=== PATIENT | female | born 2000 | race Caucasian/White ===

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

== ENCOUNTER 2019-02-03 06:35 | Emergency (ER) | payer BC, OTHER ==
[2019-02-03] MEDS ORDERED: Sodium Chloride 0.9% 1000 ML 1,000 ML IV STA (07:07)
[2019-02-03] MEDS ORDERED: Sodium Chloride 0.9% 1000 ML 1,000 ML ONE (07:12)
[2019-02-03 07:27] LABS: BASOPHIL % 0.2 % (0.0-0.4); Basophil (Absolute #) 0.02 (0-0.4); Eosinophil % 2.1 % (0.00-5.0); Eosinophil (Absolute #) 0.19 (0-0.5); Granulocytes % 69.1 % (36.0-66.0); Hematocrit 38.5 % (35-47); Hemoglobin 12.9 gm/dl (12.0-16.0); Lymphocyte (Absolute #) 1.86 (1.0-4.6); Mean Corpuscular Hemoglobin 30.1 pg (26-32); Mean Corpuscular Hgb Concent. 33.5 g/dl (32-36); Mean Platelet Volume 10.8 fl (6-9.5); Monocyte (Absolute #) 0.67 (0.0-1.3); Monocytes % 7.6 % (0.0-12.0); Platelet Count 218 K/mm3 (150-450); Red Blood Count 4.28 M/mm3 (4.1-5.4); Red Cell Distribution Width 13.5 % (11.5-14.0); White Blood Count 8.8 K/mm3 (4.0-10.5)
[2019-02-03 07:32] LABS: ALBUMIN 4.1 g/dL (3.5-5.0); ALKALINE PHOSPHATASE 62 U/L (38-126); ANION GAP 12.7 MEQ/L (5-15); BLOOD UREA NITROGEN 10 mg/dL (7-17); CHLORIDE 108 mmol/L (98-107); Calcium 9.1 mg/dL (8.4-10.2); Carbon Dioxide 24 mmol/L (22-30); Creatinine 1 0.59 mg/dL (0.52-1.04); Glucose 74 mg/dL (74-106); Potassium 3.8 mmol/L (3.5-5.1); SGOT/AST 18 U/L (14-36); SGPT/ALT 12 U/L (0-35); SODIUM 140 mmol/L (137-145); Total Protein 7.4 g/dL (6.3-8.2)
[2019-02-03 08:41] LABS: Appearance CLEAR (CLEAR); Bilirubin NEGATIVE (NEGATIVE); Blood SMALL Ery/ul (0-5); Glucose NEGATIVE (NEGATIVE); Ketones NEGATIVE (NEGATIVE); Leukocyte Esterase NEGATIVE (NEGATIVE); Mucus SLIGHT /HPF (NEGATIVE); Nitrite NEGATIVE (NEGATIVE); Protein,Urine Dip NEGATIVE (Negative); Urobilinogen NEGATIVE mg/dL (0-1); WBC 0-2 /HPF (0-5)
[2019-02-03 08:54] VITALS: BP 90/74
[2019-02-03 08:55] VITALS: PULSE 88
--- NOTE | 2019-02-03 09:00 | ERPHSYRPT ---
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 Staff found her lying on sidewalk Triage Nursing Assessment: patient by wheelchair into ER with correction employee. Weakness noted. appears lethargic Physician History: Pt is a 18 y/o female that was brought to the ED for pre-syncope. Pt was found on her knees outside the assisted facility secondary to feeling weak and dizzy. Pt never LOC, and she denies any jerking movement, loss of urine control or BM control. Pt states, she had a breakfast bar, and did not feel well afterwards. Pt denies F/C/S, no SOB or cough. No chest pain or palpitations. No N/V/D or abdominal pain. Witnessed: other (by co-worker.) Prior Episodes: single episode today Timing/Duration: today Precipitating Factors: unknown Context: other (found of knees) Loss of Consciousness: no loss of consciousness Allergies/Adverse Reactions: No Known Drug Allergies Allergy (Verified 07/24/17 19:13) Hx Tetanus, Diphtheria Vaccination/Date Given: No Hx Influenza Vaccination/Date Given: Yes Hx Pneumococcal Vaccination/Date Given: Yes Immunizations Up to Date: Yes - Past Medical History Pertinent Past Medical History: Yes Neurological History: No Pertinent History ENT History: No Pertinent History Cardiac History: No Pertinent History Respiratory History: No Pertinent History Endocrine Medical History: No Pertinent History Musculoskeletal History: No Pertinent History GI Medical History: No Pertinent History History: Other Psycho-Social History: Depression Female Reproductive Disorders: No Pertinent History Other Medical History: hx of kidney stones - Past Surgical History Past Surgical History: Yes Neuro Surgical History: No Pertinent History Cardiac: No Pertinent History Respiratory: No Pertinent History Gastrointestinal: No Pertinent History Genitourinary: Other Musculoskeletal: No Pertinent History Female Surgical History: No Pertinent History Other Surgical History: cysto with lithotripsy - Social History Smoking Status: Former smoker How long have you smoked: 1 Exposure to second hand smoke: No Drug Use: none Patient Lives Alone: No - Female History Hx Last Menstrual Period: last week Hx Now: No - Review of Systems Constitutional: Weakness, No Fever, No Chills Eyes: No Symptoms Ears, Nose, & Throat: No Symptoms Respiratory: No Cough, No Dyspnea Cardiac: No Chest Pain, No Edema, No Syncope Abdominal/Gastrointestinal: No Abdominal Pain, No Nausea, No Vomiting, No Diarrhea Genitourinary Symptoms: No Dysuria Musculoskeletal: No Back Pain, No Neck Pain Neurological: Dizziness, Lethargy Psychological: No Symptoms Endocrine: No Symptoms Physical Exam - Nursing Vital Signs Nursing Vital Signs: Initial Vital Signs Temperature 97.8 F 02/03/19 06:38 Pulse Rate 81 02/03/19 06:38 Respiratory Rate 20 02/03/19 06:38 Blood Pressure 124/99 02/03/19 06:38 O2 Sat by Pulse Oximetry 100 02/03/19 06:38 Pain Scale Pain Intensity 0 - [place] Coma Scale Best Eye Response (Ezra): (4) open spontaneously Best Verbal Response (Ezra): (5) oriented Best Motor Response ([place]): (6) obeys commands Ezra Total: 15 - Physical Exam General Appearance: lethargy, thin Eye Exam: bilateral eye: normal inspection, PERRL, EOMI Ears, Nose, Throat Exam: normal ENT inspection, pharynx normal, moist mucous membranes Neck Exam: normal inspection, non-tender, supple, full range of motion Respiratory: normal breath sounds, lungs clear, No chest tenderness, No respiratory distress Cardiovascular: regular rate/rhythm, capillary refill <2 sec, No murmur, No pulse deficit Gastrointestinal: soft, No tenderness, No distention, No mass Back Exam: normal inspection, normal range of motion, No CVA tenderness, No vertebral tenderness Extremity Exam: normal inspection, normal range of motion, pelvis stable, No tenderness Mental Status: alert, oriented x 3, cooperative foot tender Exam: normal speech, PERRL, No facial droop Coordination/Gait: normal finger to nose Motor/Sensory: no motor deficit, no sensory deficit, no pronator drift Skin Exam: pale SpO2 Interpretation: normal SpO2: 99 O2 Delivery: Room Air - Course Nursing assessment & vital signs reviewed: No EKG Interpreted by Me: RATE (81bpm), Sinus Rhythm, NORMAL INTERVALS, NORMAL ST-T Ordered Tests: Active Orders 24 hr Category Date Time Status Regular Diet Diet 02/03/19 Lunch Active HEAD WITHOUT CONTRAST [CT] Stat Exams 02/03/19 07:08 Ordered CBC W DIFF Stat Lab 02/03/19 07:07 Completed CMP Stat Lab 02/03/19 07:07 Completed D-DIMER QUANTITATION Stat Lab 02/03/19 07:07 Completed HCG,QUALITATIVE URINE Stat Lab 02/03/19 08:29 Completed UA W/RFX UR CULTURE Stat Lab 02/03/19 08:29 Completed Medication Summary Discontinued Medications Generic Name Dose Route Start Last Admin Trade Name Denise PRN Reason Stop Dose Admin Sodium Chloride 1,000 mls @ 999 mls/hr 02/03/19 07:07 02/03/19 08:52 Sodium Chloride 0.9% 1000 Ml IV 02/03/19 08:07 Infused .Q1H1M STA Infusion Sodium Chloride Confirm 02/03/19 07:12 Sodium Chloride 0.9% 1000 Ml Administered 02/03/19 07:13 Dose 1,000 mls @ ud .ROUTE .STK-MED ONE Lab/Rad Data: Laboratory Result Diagrams 02/03/19 07:07 02/03/19 07:07 Laboratory Results 02/03/19 02/03/19 02/03/19 Range/Units 08:29 08:29 07:07 WBC (4.0-10.5) K/mm3 RBC (4.1-5.4) M/mm3 Hgb (12.0-16.0) gm/dl Hct (35-47) % MCV (78-100) fl MCH (26-32) pg MCHC (32-36) g/dl RDW (11.5-14.0) % Plt Count (150-450) K/mm3 MPV (6-9.5) fl Gran % (36.0-66.0) % Eos # (Auto) (0-0.5) Absolute Lymphs (auto) (1.0-4.6) Absolute Monos (auto) (0.0-1.3) Lymphocytes % (24.0-44.0) % Monocytes % (0.0-12.0) % Eosinophils % (0.00-5.0) % Basophils % (0.0-0.4) % Absolute Granulocytes (1.4-6.9) Basophils # (0-0.4) D-Dimer 467 (215-500) ng/mL Sodium (137-145) mmol/L Potassium (3.5-5.1) mmol/L Chloride (98-107) mmol/L Carbon Dioxide (22-30) mmol/L Anion Gap (5-15) MEQ/L BUN (7-17) mg/dL Creatinine (0.52-1.04) mg/dL Estimated GFR ML/MIN Glucose (74-106) mg/dL Calcium (8.4-10.2) mg/dL Total Bilirubin (0.2-1.3) mg/dL AST (14-36) U/L ALT (0-35) U/L Alkaline Phosphatase (38-126) U/L Serum Total Protein (6.3-8.2) g/dL Albumin (3.5-5.0) g/dL Urine Color YELLOW (YELLOW) Urine Appearance CLEAR (CLEAR) Urine pH 6.0 (5-6) Ur Specific [place] 1.010 (1.005-1.025) Urine Protein NEGATIVE (Negative) Urine Ketones NEGATIVE (NEGATIVE) Urine Blood SMALL (0-5) Chas/ul Urine Nitrite NEGATIVE (NEGATIVE) Urine Bilirubin NEGATIVE (NEGATIVE) Urine Urobilinogen NEGATIVE (0-1) mg/dL Ur Leukocyte Esterase NEGATIVE (NEGATIVE) Urine WBC (Auto) 0-2 (0-5) /HPF Urine RBC (Auto) NONE (0-2) /HPF U Epithel Cells (Auto) NONE (FEW) /HPF Urine Bacteria (Auto) NONE (NEGATIVE) /HPF Urine Mucus (Auto) SLIGHT (NEGATIVE) /HPF Urine Culture Reflexed NO (NO) Urine Glucose NEGATIVE (NEGATIVE) mg/dL Urine HCG, Qual POSITIVE (Negative) 02/03/19 02/03/19 Range/Units 07:07 07:07 WBC 8.8 (4.0-10.5) K/mm3 RBC 4.28 (4.1-5.4) M/mm3 Hgb 12.9 (12.0-16.0) gm/dl Hct 38.5 (35-47) % MCV 90.0 (78-100) fl MCH 30.1 (26-32) pg MCHC 33.5 (32-36) g/dl RDW 13.5 (11.5-14.0) % Plt Count 218 (150-450) K/mm3 MPV 10.8 H (6-9.5) fl Gran % 69.1 H (36.0-66.0) % Eos # (Auto) 0.19 (0-0.5) Absolute Lymphs (auto) 1.86 (1.0-4.6) Absolute Monos (auto) 0.67 (0.0-1.3) Lymphocytes % 21.0 L (24.0-44.0) % Monocytes % 7.6 (0.0-12.0) % Eosinophils % 2.1 (0.00-5.0) % Basophils % 0.2 (0.0-0.4) % Absolute Granulocytes 6.10 (1.4-6.9) Basophils # 0.02 (0-0.4) D-Dimer (215-500) ng/mL Sodium 140 (137-145) mmol/L Potassium 3.8 (3.5-5.1) mmol/L Chloride 108 H (98-107) mmol/L Carbon Dioxide 24 (22-30) mmol/L Anion Gap 12.7 (5-15) MEQ/L BUN 10 (7-17) mg/dL Creatinine 0.59 (0.52-1.04) mg/dL Estimated GFR > 60.0 ML/MIN Glucose 74 (74-106) mg/dL Calcium 9.1 (8.4-10.2) mg/dL Total Bilirubin 0.30 (0.2-1.3) mg/dL AST 18 (14-36) U/L ALT 12 (0-35) U/L Alkaline Phosphatase 62 (38-126) U/L Serum Total Protein 7.4 (6.3-8.2) g/dL Albumin 4.1 (3.5-5.0) g/dL Urine Color (YELLOW) Urine Appearance (CLEAR) Urine pH (5-6) Ur Specific [place] (1.005-1.025) Urine Protein (Negative) Urine Ketones (NEGATIVE) Urine Blood (0-5) Chas/ul Urine Nitrite (NEGATIVE) Urine Bilirubin (NEGATIVE) Urine Urobilinogen (0-1) mg/dL Ur Leukocyte Esterase (NEGATIVE) Urine WBC (Auto) (0-5) /HPF Urine RBC (Auto) (0-2) /HPF U Epithel Cells (Auto) (FEW) /HPF Urine Bacteria (Auto) (NEGATIVE) /HPF Urine Mucus (Auto) (NEGATIVE) /HPF Urine Culture Reflexed (NO) Urine Glucose (NEGATIVE) mg/dL Urine HCG, Qual (Negative) - Progress Progress: improved Progress Note: 02/03/19 09:03 Pt was seen and examined. She was given a liter of IVF and was given breakfast. Her BG was 74, on the low side, post eating her breakfast bar. Hgb is normal, UA is normal. Pt had urine positive for HCG and pt is . She was educated about her condition, and the need to be hydrated, and eat well. Pt is safe to be d/c to home. She was advised to f/u with OB, as she just had her period a couple of weeks ago. Pt should f/u with PCP. Will see patient in: office Counseled pt/family regarding: need for follow-up - Departure Departure Disposition: Home Clinical Impression: Pre-syncope Condition: Stable Critical Care Time: No Referrals: DOCTOR,NO FAMILY [Primary Care Provider] - Additional Instructions: F/U with PCP and Ob. Keep well hydrated, and eat good meals on time.
[2019-02-03 09:01] VITALS: O2SAT 99
== END 2019-02-03 09:17 | disposition home or self-care (01) ==
LOC: ED 06:35
DX: R55 Syncope and collapse (principal)
CPT/HCPCS: 36415; 80053; 81001; 84703; 85025; 85379; 96360; 96374; 99284

== ENCOUNTER 2022-04-25 22:17 | Emergency (ER) | payer BC, OTHER ==
--- NOTE | 2022-04-25 22:30 | ERPHSYRPT ---
- History of Present Illness Time Seen by Provider: 04/25/22 22:30 Source: patient Exam Limitations: no limitations Physician History: This is a 21-year-old white female who is no more than 8 weeks who presents with resolved lower back pain that occurred earlier today. She describes the pain in the back as a cramping pain. She also had wiped and there was some blood when she wiped when she urinated earlier today. She has no lower back cramping, no abdominal or suprapubic cramping and no vaginal bleeding. She has no dysuria. She was concerned because there was an episode of lower back cramping and a single episode of wiping blood after urination. Timing/Duration: today Activites at Onset: none Quality: cramping (Earlier lower back cramping. This is now resolved) Onset Location: other (Lower back) Pain Radiation: none Severity of Pain-Max: mild Severity of Pain-Current: none Prior abdominal problems: none Sexual intercourse history: non-contributory Modifying Factors: Improves With: nothing Associated Symptoms: , other (Had blood when she wiped after urinating) Allergies/Adverse Reactions: No Known Drug Allergies Allergy (Verified 04/25/22 22:50) Home Medications: Buspirone HCl 5 mg [Buspar 5 mg] 5 mg PO BID 04/25/22 [History] Mirtazapine 7.5 mg PO DAILY 04/25/22 [History] Hx Tetanus, Diphtheria Vaccination/Date Given: No Hx Influenza Vaccination/Date Given: Yes Hx Pneumococcal Vaccination/Date Given: Yes Travel Risk - International Travel Have you traveled outside of the country in past 3 weeks: No - Coronavirus Screening Are you exhibiting any of the following symptoms?: No Close contact with a COVID-19 positive Pt in past 14-21 Days: No - Review of Systems Constitutional: No Symptoms Eyes: No Symptoms Ears, Nose, & Throat: No Symptoms Respiratory: No Symptoms Cardiac: No Symptoms Abdominal/Gastrointestinal: No Symptoms Genitourinary Symptoms: , Other (She had blood after she wiped after urinating) Musculoskeletal: Back Pain (Lower back crampiness earlier today. This has since resolved completely) Skin: No Symptoms Neurological: No Symptoms Psychological: No Symptoms Endocrine: No Symptoms Hematologic/Lymphatic: No Symptoms Immunological/Allergic: No Symptoms All Other Systems: Reviewed and Negative - Past Medical History Pertinent Past Medical History: Yes Neurological History: No Pertinent History ENT History: No Pertinent History Cardiac History: No Pertinent History Respiratory History: No Pertinent History Endocrine Medical History: No Pertinent History Musculoskeletal History: No Pertinent History GI Medical History: No Pertinent History History: Other Psycho-Social History: Depression Female Reproductive Disorders: No Pertinent History Other Medical History: hx of kidney stones - Past Surgical History Past Surgical History: Yes Neuro Surgical History: No Pertinent History Cardiac: No Pertinent History Respiratory: No Pertinent History Gastrointestinal: No Pertinent History Genitourinary: Other Musculoskeletal: No Pertinent History Female Surgical History: No Pertinent History Other Surgical History: cysto with lithotripsy - Social History Smoking Status: Former smoker How long have you smoked: 1 Exposure to second hand smoke: No Drug Use: none Patient Lives Alone: No - Nursing Vital Signs Nursing Vital Signs: Initial Vital Signs Temperature 98.1 F 04/25/22 22:38 Pulse Rate 83 04/25/22 22:38 Respiratory Rate 16 04/25/22 22:38 Blood Pressure 103/68 04/25/22 22:38 O2 Sat by Pulse Oximetry 100 04/25/22 22:38 Pain Scale Pain Intensity 0 - Physical Exam General Appearance: no apparent distress, alert, anxiety Eye Exam: PERRL/EOMI, eyes nml inspection Ears, Nose, Throat Exam: normal ENT inspection, moist mucous membranes Neck Exam: normal inspection, non-tender, supple, full range of motion Respiratory Exam: airway intact, No chest tenderness, No respiratory distress Gastrointestinal/Abdomen Exam: soft, normal bowel sounds, No tenderness Pelvic Exam: not done Rectal Exam: not done Back Exam: normal inspection, normal range of motion, No CVA tenderness, No v ertebral tenderness Extremity Exam: normal inspection, normal range of motion, pelvis stable Neurologic Exam: alert, oriented x 3, cooperative, pattern changer and repairer II-XII nml as tested, normal mood/affect, nml cerebellar function, nml station & gait, sensation nml Skin Exam: normal color, warm, dry Lymphatic Exam: No adenopathy SpO2 Interpretation: normal O2 Delivery: Room Air - Course Nursing assessment & vital signs reviewed: Yes Ordered Tests: Active Orders 24 hr Category Date Time Status CBC W DIFF Stat Lab 04/25/22 22:53 Completed CMP Stat Lab 04/25/22 22:53 Completed HCG, Quantitative (Inhouse) Stat Lab 04/25/22 22:53 Completed HCG,QUALITATIVE URINE Stat Lab 04/25/22 22:53 Completed UA W/RFX CULTURE Stat Lab 04/25/22 22:53 Completed Lab/Rad Data: Laboratory Result Diagrams 04/25/22 22:53 04/25/22 22:53 Laboratory Results 04/25/22 04/25/22 04/25/22 Range/Units 22:53 22:53 22:53 WBC 12.3 H (4.0-10.5) x10^3/uL RBC 4.18 (4.1-5.4) x10^6/uL Hgb 12.4 (12.0-16.0) g/dL Hct 37.6 (35-47) % MCV 90.0 (78-100) fL MCH 29.7 (26-32) pg MCHC 33.0 (32-36) g/dL RDW 12.6 (11.5-14.0) % Plt Count 245 (150-450) x10^3/uL MPV 10.2 (7.5-11.0) fL Gran % 70.4 H (36.0-66.0) % Immature Gran % (Auto) 0.2 (0.00-0.4) % Nucleat RBC Rel Count 0.0 (0.00-0.1) % Eos # (Auto) 0.39 (0-0.5) x10^3/uL Immature Gran # (Auto) 0.03 (0.00-0.03) x10^3u/L Absolute Lymphs (auto) 2.33 (1.0-4.6) x10^3/uL Absolute Monos (auto) 0.84 (0.0-1.3) x10^3/uL Absolute Nucleated RBC 0.00 (0.00-0.01) x10^3u/L Lymphocytes % 19.0 L (24.0-44.0) % Monocytes % 6.8 (0.0-12.0) % Eosinophils % 3.2 (0.00-5.0) % Basophils % 0.4 (0.0-0.4) % Absolute Granulocytes 8.63 H (1.4-6.9) x10^3/uL Basophils # 0.05 (0-0.4) x10^3/uL Sodium 135 L (137-145) mmol/L Potassium 3.7 (3.5-5.1) mmol/L Chloride 102 (98-107) mmol/L Carbon Dioxide 27 (22-30) mmol/L Anion Gap 9.9 (5-15) MEQ/L BUN 6 L (7-17) mg/dL Creatinine 0.46 L (0.52-1.04) mg/dL Estimated GFR > 60.0 ML/MIN Glucose 88 (74-106) mg/dL Calcium 9.2 (8.4-10.2) mg/dL Total Bilirubin 0.20 (0.2-1.3) mg/dL AST 20 (14-36) U/L ALT 17 (0-35) U/L Alkaline Phosphatase 76 (38-126) U/L Serum Total Protein 6.9 (6.3-8.2) g/dL Albumin 4.2 (3.5-5.0) g/dL Beta HCG, Quant 35780 mIU/ml Urinalys Dipstick Clnc MAIN LAB Urine Color YELLOW (YELLOW) Urine Appearance CLEAR (CLEAR) Urine pH 7.5 (5-6) Ur Specific [place] 1.015 (1.005-1.025) POC Urine Protein Conf NEGATIVE (Negative) Urine Ketones NEGATIVE (NEGATIVE) Urine Nitrite NEGATIVE (NEGATIVE) Urine Bilirubin NEGATIVE (NEGATIVE) Urine Urobilinogen 0.2 (0-1) mg/dL Urine Leukocytes NEGATIVE (NEGATIVE) Urine WBC (Auto) NONE SEEN (0-5) /HPF Urine RBC (Auto) NONE (0-2) /HPF U Epithel Cells (Auto) RARE (FEW) /HPF Urine Bacteria (Auto) RARE (NEGATIVE) /HPF Urine RBC NEGATIVE (0-5) Chas/ul Amorphous Crystals FEW A (NEGATIVE) /HPF Ur Culture Indicated? NO Urine Glucose NEGATIVE (NEGATIVE) mg/dL Urine HCG, Qual (Negative) 04/25/22 Range/Units 22:53 WBC (4.0-10.5) x10^3/uL RBC (4.1-5.4) x10^6/uL Hgb (12.0-16.0) g/dL Hct (35-47) % MCV (78-100) fL MCH (26-32) pg MCHC (32-36) g/dL RDW (11.5-14.0) % Plt Count (150-450) x10^3/uL MPV (7.5-11.0) fL Gran % (36.0-66.0) % Immature Gran % (Auto) (0.00-0.4) % Nucleat RBC Rel Count (0.00-0.1) % Eos # (Auto) (0-0.5) x10^3/uL Immature Gran # (Auto) (0.00-0.03) x10^3u/L Absolute Lymphs (auto) (1.0-4.6) x10^3/uL Absolute Monos (auto) (0.0-1.3) x10^3/uL Absolute Nucleated RBC (0.00-0.01) x10^3u/L Lymphocytes % (24.0-44.0) % Monocytes % (0.0-12.0) % Eosinophils % (0.00-5.0) % Basophils % (0.0-0.4) % Absolute Granulocytes (1.4-6.9) x10^3/uL Basophils # (0-0.4) x10^3/uL Sodium (137-145) mmol/L Potassium (3.5-5.1) mmol/L Chloride (98-107) mmol/L Carbon Dioxide (22-30) mmol/L Anion Gap (5-15) MEQ/L BUN (7-17) mg/dL Creatinine (0.52-1.04) mg/dL Estimated GFR ML/MIN Glucose (74-106) mg/dL Calcium (8.4-10.2) mg/dL Total Bilirubin (0.2-1.3) mg/dL AST (14-36) U/L ALT (0-35) U/L Alkaline Phosphatase (38-126) U/L Serum Total Protein (6.3-8.2) g/dL Albumin (3.5-5.0) g/dL Beta HCG, Quant mIU/ml Urinalys Dipstick Clnc Urine Color (YELLOW) Urine Appearance (CLEAR) Urine pH (5-6) Ur Specific [place] (1.005-1.025) POC Urine Protein Conf (Negative) Urine Ketones (NEGATIVE) Urine Nitrite (NEGATIVE) Urine Bilirubin (NEGATIVE) Urine Urobilinogen (0-1) mg/dL Urine Leukocytes (NEGATIVE) Urine WBC (Auto) (0-5) /HPF Urine RBC (Auto) (0-2) /HPF U Epithel Cells (Auto) (FEW) /HPF Urine Bacteria (Auto) (NEGATIVE) /HPF Urine RBC (0-5) Chas/ul Amorphous Crystals (NEGATIVE) /HPF Ur Culture Indicated? Urine Glucose (NEGATIVE) mg/dL Urine HCG, Qual POSITIVE (Negative) - Progress Progress: improved Air Movement: good Counseled pt/family regarding: lab results, diagnosis, need for follow-up - Departure Departure Disposition: Home Clinical Impression: Vaginal bleeding affecting early Condition: Stable Critical Care Time: No Referrals: DOCTOR,NO FAMILY [Primary Care Provider] - Follow up/PCP as directed Additional Instructions: Continue your medication as prescribed. 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
[2022-04-25 22:50] VITALS: BP 103/68
[2022-04-25 22:56] LABS: Absolute Neutrophil Ct (ANC) 8.63 x10^3/uL (1.4-6.9); Basophil (Absolute #) 0.05 x10^3/uL (0-0.4); Eosinophil % 3.2 % (0.00-5.0); Eosinophil (Absolute #) 0.39 x10^3/uL (0-0.5); Hematocrit 37.6 % (35-47); Hemoglobin 12.4 g/dL (12.0-16.0); Lymphocyte (Absolute #) 2.33 x10^3/uL (1.0-4.6); Mean Corpuscular Hemoglobin 29.7 pg (26-32); Mean Platelet Volume 10.2 fL (7.5-11.0); Monocyte (Absolute #) 0.84 x10^3/uL (0.0-1.3); Monocytes % 6.8 % (0.0-12.0); Neutrophil % 70.4 % (36.0-66.0); Platelet Count 245 x10^3/uL (150-450); Red Blood Count 4.18 x10^6/uL (4.1-5.4); Red Cell Distribution Width 12.6 % (11.5-14.0); White Blood Count 12.3 x10^3/uL (4.0-10.5)
[2022-04-25 23:01] LABS: Appearance CLEAR (CLEAR); Bilirubin NEGATIVE (NEGATIVE); Dipstick done @ ? MAIN LAB; Glucose NEGATIVE (NEGATIVE); Ketones NEGATIVE (NEGATIVE); Nitrite NEGATIVE (NEGATIVE); Ph 7.5 (5-6); Protein,Urine Dip NEGATIVE (Negative); RBC NEGATIVE Ery/ul (0-5); Specific Gravity 1.015 (1.005-1.025); Urobilinogen 0.2 mg/dL (0-1)
[2022-04-25 23:04] LABS: Amourphous Crystal FEW /HPF (NEGATIVE); Bacteria RARE /HPF (NEGATIVE); Epithelial Cells RARE /HPF (FEW); Urine Cultured Indicated? NO; WBC NONE SEEN /HPF (0-5)
[2022-04-25 23:29] LABS: ALBUMIN 4.2 g/dL (3.5-5.0); ALKALINE PHOSPHATASE 76 U/L (38-126); ANION GAP 9.9 MEQ/L (5-15); BLOOD UREA NITROGEN 6 mg/dL (7-17); CHLORIDE 102 mmol/L (98-107); Calcium 9.2 mg/dL (8.4-10.2); Carbon Dioxide 27 mmol/L (22-30); Creatinine 1 0.46 mg/dL (0.52-1.04); EST GLOMERULAR FILTRATION RATE > 60.0 ML/MIN; Glucose 88 mg/dL (74-106); Potassium 3.7 mmol/L (3.5-5.1); SGOT/AST 20 U/L (14-36); SGPT/ALT 17 U/L (0-35); SODIUM 135 mmol/L (137-145); Total Protein 6.9 g/dL (6.3-8.2)
[2022-04-25 23:53] LABS: HCG, Quantitative (Inhouse) 84875 mIU/ml
[2022-04-26 00:10] VITALS: PULSE 102; O2SAT 98
== END 2022-04-26 00:10 | disposition home or self-care (01) ==
LOC: ED 22:17
DX: O20.9 Hemorrhage in early pregnancy, unspecified (principal); Z3A.08 8 weeks gestation of pregnancy; M54.50 Low back pain, unspecified; Z79.899 Other long term (current) drug therapy
CPT/HCPCS: 36415; 80053; 81015; 81025; 84702; 85025; 99282

== ENCOUNTER 2022-05-13 02:13 | Emergency (ER) | payer BC, OTHER ==
[2022-05-13 04:20] LABS: Erythrocyte Sedimentation Rate 1 mm/hr (0-20)
[2022-05-13 04:23] LABS: Absolute Neutrophil Ct (ANC) 6.99 x10^3/uL (1.4-6.9); Basophil (Absolute #) 0.04 x10^3/uL (0-0.4); Eosinophil % 2.2 % (0.00-5.0); Eosinophil (Absolute #) 0.22 x10^3/uL (0-0.5); Hematocrit 32.8 % (35-47); Hemoglobin 11.2 g/dL (12.0-16.0); Lymphocyte (Absolute #) 2.19 x10^3/uL (1.0-4.6); Lymphocytes % 21.5 % (24.0-44.0); Mean Cell Volume 87.5 fL (78-100); Mean Corpuscular Hemoglobin 29.9 pg (26-32); Mean Corpuscular Hgb Concent. 34.1 g/dL (32-36); Mean Platelet Volume 10.5 fL (7.5-11.0); Monocyte (Absolute #) 0.72 x10^3/uL (0.0-1.3); Monocytes % 7.1 % (0.0-12.0); Neutrophil % 68.4 % (36.0-66.0); Platelet Count 239 x10^3/uL (150-450); Red Blood Count 3.75 x10^6/uL (4.1-5.4); Red Cell Distribution Width 12.9 % (11.5-14.0); White Blood Count 10.2 x10^3/uL (4.0-10.5)
--- NOTE | 2022-05-13 04:33 | ERPHSYRPT ---
- History of Present Illness Time Seen by Provider: 05/13/22 04:25 Source: patient, family Exam Limitations: no limitations Patient Subjective Stated Complaint: pt states "I have been loosing my voice for the past month and a half. They thought it was my thyroid. I had a ultrasounds of it and it was fine. I have an appointment for my throat on Saturday. It is getting harder for me to talk and swallow." Triage Nursing Assessment: pt ambulated into the er; pt is axo x4; c/o sorethroat; pt states 8/10 pain to throat; c/o difficulty swallowing; pt is drinking soda; pt has raspy voice; mucus membrane are pink and moist; multiple tooth caries to left lower molars; tosils visble, pink, no swelling present; no swelling present to lymph nodes; skin PDW; vitals wnl Physician History: Pt reports 6 week hx of hoaseness and pain with swallowing. She can still swallow liquids in ER. SHe is 10 weeks with no current preg symptoms - no bleeding, vomiting, cramping, trauma, discharge or other concerns. She has already been swabbed for strep and other resp and found negative. She is being worked up already and to see ENT. No stridor, nontender anterior neck without crep. no major enlargement of thyroid on exam - has had several negative tests so far for thyrotoxicosis. Chest clear without stridor or wheezes. pharynx normal without swelling noted. abd nontender. No rashes. We discussed risk and benefit of CT to look for immediate problem like compression of trachea, and she does not wish the rad risk. We discussed alternatives such as MRI - not available here on weekend, and she wishes to wait for this and declines transfer for further w/u meantime and has the capacity to make these choices. Timing/Duration: gradual onset, persistent, weeks Severity: moderate ENT Location: throat Prearrival Treatment: over the counter meds Modifying Factors: Improves With: nothing Associated Symptoms: sore throat, voice change, other (swallowing ok in ER but states painful) Allergies/Adverse Reactions: No Known Drug Allergies Allergy (Verified 05/13/22 02:25) Home Medications: Buspirone HCl 5 mg [Buspar 5 mg] 5 mg PO BID 04/25/22 [History] Mirtazapine 7.5 mg PO DAILY 04/25/22 [History] Hx Tetanus, Diphtheria Vaccination/Date Given: No Hx Influenza Vaccination/Date Given: No Hx Pneumococcal Vaccination/Date Given: No Travel Risk - International Travel Have you traveled outside of the country in past 3 weeks: No - Coronavirus Screening Are you exhibiting any of the following symptoms?: No Close contact with a COVID-19 positive Pt in past 14-21 Days: No - Vaccine Status Have you recieved a Covid-19 vaccination: No - Review of Systems Constitutional: No Fever, No Chills Eyes: No Symptoms Ears, Nose, & Throat: Painful Swallowing Respiratory: No Cough, No Dyspnea Cardiac: No Chest Pain, No Edema, No Syncope Abdominal/Gastrointestinal: No Abdominal Pain, No Nausea, No Vomiting, No Diarrhea Genitourinary Symptoms: No Dysuria Musculoskeletal: No Back Pain, No Neck Pain Skin: No Rash Neurological: No Dizziness, No Focal Weakness, No Sensory Changes Psychological: No Symptoms Endocrine: No Symptoms Hematologic/Lymphatic: No Symptoms Immunological/Allergic: No Symptoms All Other Systems: Reviewed and Negative - Past Medical History Pertinent Past Medical History: Yes Neurological History: No Pertinent History ENT History: No Pertinent History Cardiac History: No Pertinent History Respiratory History: No Pertinent History Endocrine Medical History: No Pertinent History Musculoskeletal History: No Pertinent History GI Medical History: No Pertinent History History: Other Psycho-Social History: Anxiety, Depression Female Reproductive Disorders: No Pertinent History Other Medical History: hx of kidney stones, PTSD - Past Surgical History Past Surgical History: Yes Neuro Surgical History: No Pertinent History Cardiac: No Pertinent History Respiratory: No Pertinent History Gastrointestinal: No Pertinent History Genitourinary: Other Musculoskeletal: No Pertinent History Female Surgical History: No Pertinent History Other Surgical History: cysto with lithotripsy - Social History Smoking Status: Former smoker How long have you smoked: 1 Exposure to second hand smoke: No Drug Use: none Patient Lives Alone: No - Female History Hx Now: Yes Expected Date of Delivery: 11/17/22 Gestational Age: 10 weeks - Nursing Vital Signs Nursing Vital Signs: Initial Vital Signs Temperature 98.6 F 05/13/22 02:17 Pulse Rate 95 H 05/13/22 02:17 Respiratory Rate 16 05/13/22 02:17 Blood Pressure 133/88 05/13/22 02:17 O2 Sat by Pulse Oximetry 99 05/13/22 02:17 Pain Scale Pain Intensity 8 - Physical Exam General Appearance: no apparent distress, alert Eye Exam: bilateral eye: normal inspection, PERRL, EOMI Ear Exam: bilateral ear: auricle normal, canal normal, TM normal Nasal Exam: normal inspection Throat Exam: pharynx normal, moist mucus membranes, No tonsillar exudate Neck Exam: normal inspection, non-tender, supple, full range of motion, trachea midline Cardiovascular/Respiratory Exam: normal breath sounds, regular rate/rhythm, heart sounds normal Abdominal Exam: non-tender, soft Neurologic Exam: alert, oriented x 3, sensation nml, No motor deficits Skin Exam: normal color, warm, dry SpO2 Interpretation: normal SpO2: 99 O2 Delivery: Room Air - Course Nursing assessment & vital signs reviewed: Yes Ordered Tests: Active Orders 24 hr Category Date Time Status CBC W DIFF Stat Lab 05/13/22 04:19 Completed Erythrocyte Sedimentation Rate Stat Lab 05/13/22 04:19 Completed [place] Screen Stat Lab 05/13/22 04:19 Completed T4 (Thyroxine) Stat Lab 05/13/22 04:19 Completed Lab/Rad Data: Laboratory Result Diagrams 05/13/22 04:19 Laboratory Results 05/13/22 05/13/22 05/13/22 Range/Units 04:19 04:19 04:19 WBC 10.2 (4.0-10.5) x10^3/uL RBC 3.75 L (4.1-5.4) x10^6/uL Hgb 11.2 L (12.0-16.0) g/dL Hct 32.8 L (35-47) % MCV 87.5 (78-100) fL MCH 29.9 (26-32) pg MCHC 34.1 (32-36) g/dL RDW 12.9 (11.5-14.0) % Plt Count 239 (150-450) x10^3/uL MPV 10.5 (7.5-11.0) fL Gran % 68.4 H (36.0-66.0) % Immature Gran % (Auto) 0.4 (0.00-0.4) % Nucleat RBC Rel Count 0.0 (0.00-0.1) % Eos # (Auto) 0.22 (0-0.5) x10^3/uL Immature Gran # (Auto) 0.04 H (0.00-0.03) x10^3u/L Absolute Lymphs (auto) 2.19 (1.0-4.6) x10^3/uL Absolute Monos (auto) 0.72 (0.0-1.3) x10^3/uL Absolute Nucleated RBC 0.00 (0.00-0.01) x10^3u/L Lymphocytes % 21.5 L (24.0-44.0) % Monocytes % 7.1 (0.0-12.0) % Eosinophils % 2.2 (0.00-5.0) % Basophils % 0.4 (0.0-0.4) % Absolute Granulocytes 6.99 H (1.4-6.9) x10^3/uL Basophils # 0.04 (0-0.4) x10^3/uL ESR 1 (0-20) mm/hr Thyroxine (T4) 13.2 H (5.53-10.96) ug/dL Monoscreen NEGATIVE (Negative) - Progress Progress: improved, re-examined Progress Note: 05/13/22 05:01 discussed result with pt including elevated T4. 13 with normal here at about 11. Pt wishes f/u as outpt with PMD and endo tomorrow rather that further w/u / beginning Tx in er at this time, and has the capacity to make that choice. She understands that there could be a progression of her condition meantime or an unrelated condition undtected could be progressing.. 05/13/22 05:07 Counseled pt/family regarding: lab results, diagnosis, need for follow-up - Departure Departure Disposition: Home Clinical Impression: Hyperthyroidism Condition: Good Critical Care Time: No Referrals: Provider,Unknown [Primary Care Provider] - Follow up/PCP as directed Instructions: Sore Throat, Adult (DC), Hyperthyroidism (Overactive Thyroid) and Additional Instructions: We did find your T4 from your thyroid to be elevated and this may indicate hyperthyroidism. follow-up with your for further work-up and treatment as planned tomorrow. . return meantime if unable to swallow, trouble breathing or any other concerns.
[2022-05-13 05:02] VITALS: BP 128/74; PULSE 87
[2022-05-13 05:07] VITALS: O2SAT 99
== END 2022-05-13 05:16 | disposition home or self-care (01) ==
LOC: ED 02:13
DX: O99.281 Endocrine, nutritional and metabolic diseases complicating pregnancy, first trimester (principal); E05.90 Thyrotoxicosis, unspecified without thyrotoxic crisis or storm; Z3A.10 10 weeks gestation of pregnancy; J02.9 Acute pharyngitis, unspecified; R49.0 Dysphonia; Z79.899 Other long term (current) drug therapy; Z28.310 Unvaccinated for COVID-19
CPT/HCPCS: 36415; 84436; 85025; 85652; 86308; 99282

== ENCOUNTER 2025-02-17 13:52 | Emergency (ER) | payer OTHER ==
--- NOTE | 2025-02-17 15:08 | ERPHSYRPT ---
- History of Present Illness Time Seen by Provider: 02/17/25 14:57 Historian: patient Exam Limitations: no limitations Physician History: 24-year-old female presents emergency room with chest pain shortness of breath patient was seen at outpatient facility sent to the ER for an abnormal EKG reading patient is been feeling sick for the past 2 to 3 days she had a delivery of her third child back in September and she had a bilateral tubal ligation done in November denies any nausea vomiting diarrhea denies any back pain denies any other symptoms patient is now in ED for further eval Timing/Duration: day(s) (3) Activities at Onset: activity Quality: aching Location: substernal Chest Pain Radiation: no radiation Severity of Pain-Max: mild Severity of Pain-Current: mild Associated Symptoms: shortness of breath, No abdominal pain, No cough, No chills Aspirin Treatment Today: no aspirin today Allergies/Adverse Reactions: No Known Drug Allergies Allergy (Verified 02/17/25 15:04) Hx Tetanus, Diphtheria Vaccination/Date Given: No Hx Influenza Vaccination/Date Given: No Hx Pneumococcal Vaccination/Date Given: No - Review of Systems Constitutional: No Fever, No Chills Eyes: No Symptoms Ears, Nose, & Throat: No Symptoms Respiratory: Dyspnea, No Cough Cardiac: Chest Pain, No Edema, No Syncope Abdominal/Gastrointestinal: No Abdominal Pain, No Nausea, No Vomiting, No Diarrhea Genitourinary Symptoms: No Dysuria Musculoskeletal: No Back Pain, No Neck Pain Skin: No Rash Neurological: No Dizziness, No Focal Weakness, No Sensory Changes Psychological: No Symptoms Endocrine: No Symptoms All Other Systems: Reviewed and Negative - Past Medical History Pertinent Past Medical History: Yes Neurological History: No Pertinent History ENT History: No Pertinent History Cardiac History: No Pertinent History Respiratory History: No Pertinent History Endocrine Medical History: No Pertinent History Musculoskeletal History: No Pertinent History GI Medical History: No Pertinent History History: Other Psycho-Social History: Anxiety, Depression Female Reproductive Disorders: No Pertinent History Other Medical History: hx of kidney stones, PTSD - Past Surgical History Past Surgical History: Yes Neuro Surgical History: No Pertinent History Cardiac: No Pertinent History Respiratory: No Pertinent History Gastrointestinal: No Pertinent History Genitourinary: Other Musculoskeletal: No Pertinent History Female Surgical History: No Pertinent History Other Surgical History: cysto with lithotripsy - Female History Hx Now: No - Social History Smoking Status: Former smoker Drug Use: none - Nursing Vital Signs Nursing Vital Signs: Initial Vital Signs Temperature 97 F 02/17/25 13:53 Pulse Rate 98 H 02/17/25 13:53 Respiratory Rate 20 02/17/25 13:53 Blood Pressure 129/96 02/17/25 13:53 O2 Sat by Pulse Oximetry 100 02/17/25 13:53 Pain Scale Pain Intensity 2 - Physical Exam General Appearance: no apparent distress, alert Eye Exam: PERRL/EOMI, eyes nml inspection Ears, Nose, Throat Exam: normal ENT inspection, moist mucous membranes Neck Exam: normal inspection, non-tender, supple, full range of motion Respiratory Exam: normal breath sounds, lungs clear, No respiratory distress Cardiovascular Exam: regular rate/rhythm, normal heart sounds Gastrointestinal/Abdomen Exam: soft, No tenderness, No mass Back Exam: normal inspection, No CVA tenderness, No vertebral tenderness Extremity Exam: normal inspection, normal range of motion Neurologic Exam: alert, oriented x 3, cooperative, normal mood/affect, sensation nml, No motor deficits Skin Exam: normal color, warm, dry - Course Nursing assessment & vital signs reviewed: Yes EKG Interpreted by Me: RATE (92), Sinus Rhythm, Non-specific ST Changes, Other (no STEMI) Ordered Tests: Active Orders 24 hr Category Date Time Status Torch [place] STAT Care 02/17/25 14:59 Active EKG-ER Only STAT Care 02/17/25 14:58 Active IV Insertion STAT Care 02/17/25 14:58 Completed Pulse Oximetry (ED) STAT Care 02/17/25 14:58 Completed CHEST 1 VIEW (PORTABLE) Stat Exams 02/17/25 14:59 Completed CBC W DIFF Stat Lab 02/17/25 15:00 Completed CK-Creatinine Phosphokinase Stat Lab 02/17/25 15:00 Completed CMP Stat Lab 02/17/25 15:00 Completed D-DIMER QUANTITATIVE Stat Lab 02/17/25 15:00 Completed NT PRO BNPII Stat Lab 02/17/25 15:00 Completed TROPONIN Q3H Lab 02/17/25 15:00 Completed TROPONIN Q3H Lab 02/17/25 17:00 Completed TSH [TSH, 3RD Generation] Stat Lab 02/17/25 17:00 Received [place] 3-7 Day Holter ONCE RT 02/17/25 17:01 Completed Medication Summary Discontinued Medications Generic Name Dose Route Start Last Admin Trade Name Freq PRN Reason Stop Dose Admin Meclizine HCl 25 mg 02/17/25 16:41 02/17/25 16:46 Meclizine Hcl 25 Mg Tablet PO 02/17/25 16:42 25 mg STAT ONE Administration Ondansetron HCl 4 mg 02/17/25 16:41 02/17/25 16:47 Ondansetron Hcl 4 Mg/2 Ml Vial IV 02/17/25 16:42 4 mg STAT ONE Administration Lab/Rad Data: Laboratory Result Diagrams 02/17/25 15:00 02/17/25 15:00 Laboratory Results 02/17/25 02/17/25 02/17/25 Range/Units 17:00 15:12 15:00 WBC (3.98-10.04) x10^3/uL RBC (3.93-5.22) x10^6/uL Hgb (11.2-15.7) g/dL Hct (34.1-44.9) % MCV (79.4-94.8) fL MCH (25.6-32.2) pg MCHC (32.2-35.5) g/dL RDW (11.7-14.4) % Plt Count (182-369) x10^3/uL MPV (9.4-12.3) fL Gran % (34.0-71.1) % Immature Gran % (Auto) (0.001-0.429) % Nucleat RBC Rel Count (0.00-0.2) % Eos # (Auto) (0.04-0.36) x10^3/uL Immature Gran # (Auto) (0.001-0.031) x10^3u/L Absolute Lymphs (auto) (1.18-3.74) x10^3/uL Absolute Monos (auto) (0.24-0.86) x10^3/uL Absolute Nucleated RBC (0.00-0.012) x10^3u/L Lymphocytes % (19.3-51.7) % Monocytes % (4.7-12.5) % Eosinophils % (0.7-5.8) % Basophils % (0.1-1.2) % Absolute Granulocytes (1.56-6.13) x10^3/uL Basophils # (0.01-0.08) x10^3/uL D-Dimer (0.0-0.50) mg/L Sodium (135-145) mmol/L Potassium (3.5-5.1) mmol/L Chloride (98-107) mmol/L Carbon Dioxide (22-30) mmol/L Anion Gap (5-15) MEQ/L BUN (7-17) mg/dL Creatinine (0.52-1.04) mg/dL Estimated GFR ML/MIN Glucose (74-106) mg/dL Calcium (8.4-10.2) mg/dL Total Bilirubin (0.2-1.3) mg/dL AST (14-36) U/L ALT (0-35) U/L Alkaline Phosphatase (38-126) U/L Creatine Kinase (30-135) U/L Troponin I < 0.012 < 0.012 (0.000-0.033) ng/mL NT-Pro-B Natriuret Pep 251 (<300) pg/mL Serum Total Protein (6.3-8.2) g/dL Albumin (3.5-5.0) g/dL Influenza Type A Ag NEGATIVE (NEGATIVE) Influenza Type B Ag NEGATIVE (NEGATIVE) RSV (PCR) NEGATIVE (NEGATIVE) SARS-CoV-2 (PCR) NEGATIVE (NEGATIVE) 02/17/25 02/17/25 02/17/25 Range/Units 15:00 15:00 15:00 WBC 8.0 (3.98-10.04) x10^3/uL RBC 4.96 (3.93-5.22) x10^6/uL Hgb 14.6 (11.2-15.7) g/dL Hct 43.7 (34.1-44.9) % MCV 88.1 (79.4-94.8) fL MCH 29.4 (25.6-32.2) pg MCHC 33.4 (32.2-35.5) g/dL RDW 12.6 (11.7-14.4) % Plt Count 243 (182-369) x10^3/uL MPV 11.1 (9.4-12.3) fL Gran % 67.6 (34.0-71.1) % Immature Gran % (Auto) 0.1 (0.001-0.429) % Nucleat RBC Rel Count 0.0 (0.00-0.2) % Eos # (Auto) 0.05 (0.04-0.36) x10^3/uL Immature Gran # (Auto) 0.01 (0.001-0.031) x10^3u/L Absolute Lymphs (auto) 1.85 (1.18-3.74) x10^3/uL Absolute Monos (auto) 0.64 (0.24-0.86) x10^3/uL Absolute Nucleated RBC 0.00 (0.00-0.012) x10^3u/L Lymphocytes % 23.1 (19.3-51.7) % Monocytes % 8.0 (4.7-12.5) % Eosinophils % 0.6 L (0.7-5.8) % Basophils % 0.6 (0.1-1.2) % Absolute Granulocytes 5.41 (1.56-6.13) x10^3/uL Basophils # 0.05 (0.01-0.08) x10^3/uL D-Dimer < 0.19 (0.0-0.50) mg/L Sodium 140 (135-145) mmol/L Potassium 3.7 (3.5-5.1) mmol/L Chloride 101 (98-107) mmol/L Carbon Dioxide 26 (22-30) mmol/L Anion Gap 16.9 H (5-15) MEQ/L BUN 8 (7-17) mg/dL Creatinine 0.61 (0.52-1.04) mg/dL Estimated GFR 126.4 ML/MIN Glucose 101 (74-106) mg/dL Calcium 10.2 (8.4-10.2) mg/dL Total Bilirubin 0.80 (0.2-1.3) mg/dL AST 27 (14-36) U/L ALT 19 (0-35) U/L Alkaline Phosphatase 74 (38-126) U/L Creatine Kinase 28 L (30-135) U/L Troponin I (0.000-0.033) ng/mL NT-Pro-B Natriuret Pep (<300) pg/mL Serum Total Protein 8.9 H (6.3-8.2) g/dL Albumin 5.5 H (3.5-5.0) g/dL Influenza Type A Ag (NEGATIVE) Influenza Type B Ag (NEGATIVE) RSV (PCR) (NEGATIVE) SARS-CoV-2 (PCR) (NEGATIVE) - Progress Progress Note: 02/17/25 17:13 Portable chest hyperinflated and clear. Heart not enlarged. Bony thorax intact with minimal double curvature thoracolumbar scoliosis. No acute findings. 02/17/25 17:23 He was given a Holter monitor patient's troponin has been sent awaiting results patient has been resting comfortably D-dimer is within normal limits patient swabs are negative recommend patient follow-up cardiology and recommend close return precautions - Departure Departure Disposition: Home Clinical Impression: Palpitations Condition: Stable Critical Care Time: No Referrals: JONATHAN PHILLIPS NP [Primary Care Provider, UNKNOWN] - Follow up/PCP as directed Instructions: Chest Pain (DC), Palpitations Forms: Work/School Release Form Prescriptions: Ondansetron ODT 4 MG [Zofran Odt 4 mg] 4 mg PO Q6HPRN PRN #10 tab PRN Reason: Nausea Meclizine HCl 25 mg [Antivert 25 mg] 25 mg PO BID #10 tablet Outpatient Orders: Holter Monitor Facility: [facility], Location: RESPIRATORY THERAPY
[2025-02-17 15:17] VITALS: BP 129/96; PULSE 98; RESP 20; TEMP 97; O2SAT 100
[2025-02-17 15:19] LABS: BASOPHIL % 0.6 % (0.1-1.2); Basophil (Absolute #) 0.05 x10^3/uL (0.01-0.08); Eosinophil (Absolute #) 0.05 x10^3/uL (0.04-0.36); Hematocrit 43.7 % (34.1-44.9); Hemoglobin 14.6 g/dL (11.2-15.7); IMMATURE GRAN # 0.01 x10^3u/L (0.001-0.031); IMMATURE GRAN % 0.1 % (0.001-0.429); Lymphocyte (Absolute #) 1.85 x10^3/uL (1.18-3.74); Mean Corpuscular Hemoglobin 29.4 pg (25.6-32.2); Mean Corpuscular Hgb Concent. 33.4 g/dL (32.2-35.5); Monocyte (Absolute #) 0.64 x10^3/uL (0.24-0.86); NUCLEATED RBC # 0.00 x10^3u/L (0.00-0.012); NUCLEATED RBC % 0.0 % (0.00-0.2); Platelet Count 243 x10^3/uL (182-369); Red Blood Count 4.96 x10^6/uL (3.93-5.22); White Blood Count 8.0 x10^3/uL (3.98-10.04)
[2025-02-17 15:50] LABS: CK-Creatinine Phosphokinase 28.0 U/L (30-135); Calcium 10.2 mg/dL (8.4-10.2); Carbon Dioxide 26.0 mmol/L (22-30); Creatinine 1 0.61 mg/dL (0.52-1.04); EST GLOMERULAR FILTRATION RATE 126.4 ML/MIN; Glucose 101.0 mg/dL (74-106); Potassium 3.7 mmol/L (3.5-5.1); SGOT/AST 27.0 U/L (14-36); SGPT/ALT 19.0 U/L (0-35); Total Protein 8.9 g/dL (6.3-8.2)
[2025-02-17 15:55] LABS: INFLUENZA A NEGATIVE (NEGATIVE); INFLUENZA B NEGATIVE (NEGATIVE); RESPIRATORY SYNCTIAL VIRUS NEGATIVE (NEGATIVE); SARS-CoV-2 Xpert Express NEGATIVE (NEGATIVE)
[2025-02-17 16:01] LABS: NT PRO BNPII 251 pg/mL (<300); TROPONIN < 0.012 ng/mL (0.000-0.033)
[2025-02-17] MEDS ORDERED: Zofran 4 MG/2 ML VIAL ONE (16:44)
[2025-02-17] MEDS ORDERED: ANTIVERT 25 MG ONE (16:45)
[2025-02-17] MEDS: ANTIVERT 25 MG PO ONE (16:46)
[2025-02-17] MEDS: Zofran 4 MG/2 ML VIAL IV ONE (16:47)
--- NOTE | 2025-02-17 17:09 | XRAY ---
Indication: Chest pain. Comparison: None Portable chest hyperinflated and clear. Heart not enlarged. Bony thorax intact with minimal double curvature thoracolumbar scoliosis. No acute findings.
== END 2025-02-17 18:00 | disposition home or self-care (01) ==
LOC: ED 13:52
DX: R00.2 Palpitations (principal); R94.31 Abnormal electrocardiogram [ECG] [EKG]; R07.9 Chest pain, unspecified; R06.02 Shortness of breath; Z79.899 Other long term (current) drug therapy